=== PATIENT | female | born 1955 | race Caucasian/White ===

== ENCOUNTER 2018-01-15 11:45 | Emergency (ER) | payer OTHER ==
[2018-01-15 12:14] VITALS: BP 111/65; TEMP 97.6; O2SAT 96
--- NOTE | 2018-01-15 12:34 | RAD ---
EXAM DESCRIPTION: Knee,Right 2 or More Views CLINICAL HISTORY: 62 years, Female, pain COMPARISON: None TECHNIQUE: Three views of the right knee FINDINGS: No fracture or dislocation. Bones appear normally mineralized with normal trabecular pattern. Normal appearance of medial and lateral compartments on frontal view. Lateral view shows normal position of the patella. No patellar spurring or enthesopathy. Question small suprapatellar knee joint effusion. Normal contour of quadriceps and patellar tendons. Mild lateral tilt without subluxation of the patella on patellar sunrise view. There is narrowing of the patellofemoral joint with mild posterolateral spurring. IMPRESSION: Degenerative changes as described. Electronically signed by: Salvatore Cuellar MD 01/15/2018 12:32 PM CDT
--- NOTE | 2018-01-15 12:45 | ED.PDOC ---
History of Present Illness - General Chief Complaint: Lower Extremity Injury Stated Complaint: right knee pain Time Seen by Provider: 01/15/18 12:30 Source: patient Exam Limitations: no limitations - History of Present Illness Initial Comments: Caroline Booth 62 y/o female stated that she started having dull ache on her right knee which started 3 days ago and gradually got worse today unable to bear weight on right knee.Denies history of any form of injury to right knee. Occurred: other - see hpi -3 days ago Pain - Lower Extremity: moderate: Right Knee Method of Injury: unknown, other - no injury Improving Factors: rest Worsening Factors: movement Allergies/Adverse Reactions: Allergies Codeine Allergy (Verified 01/15/18 12:12) Latex Allergy (Verified 01/15/18 12:12) Propoxyphene [From Darvon] Allergy (Verified 01/15/18 12:12) Home Medications: Ambulatory Orders Albuterol Inhaler [Ventolin Hfa Inhaler] 2 puff INH Q4H PRN 01/15/18 Atorvastatin Calcium [Lipitor] 40 mg PO BEDTIME 01/15/18 Escitalopram Oxalate [Lexapro] 20 mg PO BEDTIME 01/15/18 Esomeprazole Magnesium [Nexium] 20 mg PO BEDTIME 01/15/18 Estradiol 1 mg PO BEDTIME 01/15/18 Fexofenadine HCl [Tamia Allergy] 180 mg PO DAILY 01/15/18 Fluticasone Prop 0.05% Nasal [Flonase Nasal [place]] 1 spray BNAS PRN 01/15/18 Gabapentin 600 mg PO BEDTIME 01/15/18 Ipratropium [place] Hfa [Atrovent Hfa] 2 inh IN QID PRN 01/15/18 Losartan Potassium & Hydrochlo [Losartan Potassium/Hydroc 50-12.5 mg] 1 tab PO DAILY 01/15/18 Montelukast [Singulair] 10 mg PO BEDTIME 01/15/18 Naproxen Sodium 500 mg PO BEDTIME 01/15/18 Omeprazole 40 mg PO DAILY 01/15/18 Potassium Chloride [K-Tab] 20 meq PO BEDTIME 01/15/18 Pyridostigmine [place] 60 mg PO BID 01/15/18 Solifenacin Succinate [Vesicare] 5 mg PO BEDTIME 01/15/18 Tramadol HCl 50 mg PO PRN PRN 01/15/18 Tramadol HCl 100 mg PO Q6HRS PRN #30 tab 01/15/18 Review of Systems - Review of Systems Constitutional: States: no symptoms reported EENTM: States: no symptoms reported Respiratory: States: no symptoms reported Cardiology: States: no symptoms reported Skin: States: see HPI All other Systems: Reviewed and Negative, No Change from Baseline Past Medical History (General) - Patient Medical History Hx Stroke: No Hx Cardiac Disorders: Yes - HX Atrial fib Hx Congestive Heart Failure: No Hx Hypertension: Yes Hx Diabetes: No Hx Gastroesophageal Reflux: Yes Hx Other PMH: Yes - myasthenia gravis;MTHFR Surgical History: tonsillectomy, other - low back;ankle,hysterectomy,rotator cuff right - Vaccination History Hx Influenza Vaccination: Yes Hx Pneumococcal Vaccination: Yes - Social History Hx Tobacco Use: Yes Hx Physical Abuse: No Hx Emotional Abuse: No Family Medical History - Family History Mother Family History: Unknown Living Status: Unknown Hx Family Hypertension: Yes - mom Hx Family Cancer: Yes - throat-dad;brain-brother;breast-mom Physical Exam - Physical Exam General Appearance: Alert, Comfortable, No apparent distress Eyes, Ears, Nose, Throat: normal ENT inspection Neck: non-tender, full range of motion, supple Cardiovascular/Respiratory: regular rate, rhythm, no M/R/G, normal peripheral pulses, normal breath sounds Gastrointestinal/Abdominal: non-tender, no organomegaly Back: no CVA tenderness, no vertebral tenderness Thigh/Hip: normal inspection, non-tender, no evidence of injury Leg: normal inspection, non-tender, no evidence of injury Knee: normal inspection, non-tender, no evidence of injury, limited ROM - pain right knee, soft tissue tenderness - right knee, other - right tibial line tenderness Ankle: normal inspection, non-tender Foot: normal inspection, non-tender Neuro/Tendon: normal sensation, normal motor functions, normal tendon functions , no evidence tendon injury Mental Status: alert, oriented x 3 Skin: normal color, warm/dry Progress - Progress Progress: 01/15/18 14:01 Vital Signs - 24 hr 01/15/18 12:06 Temperature 97.6 F Pulse Rate [ 96 H Left Brachial] Respiratory 20 Rate Blood Pressure 111/65 [Left Arm] O2 Sat by Pulse 96 Oximetry - Results/Orders Results/Orders: Laboratory Results - last 24 hr 0401/15/18 01/15/18 12:53 13:05 13:05 WBC 12.3 H RBC 4.48 Hgb 9.2 L Hct 30.2 L MCV 67.3 L MCH 20.5 L MCHC 30.5 L RDW 20.4 H Plt Count 386 MPV 9.4 Absolute Neuts (auto) 9.40 H Absolute Lymphs (auto) 1.60 Absolute Monos (auto) 1.00 H Absolute Eos (auto) 0.20 Absolute Basos (auto) 0.10 Neutrophils % 76.2 Lymphocytes % 12.9 L Monocytes % 8.2 Eosinophils % 1.7 Basophils % 1.0 Uric Acid 3.5 Urine Opiates Screen Negative Urine Barbiturates Negative Ur Phencyclidine Scrn Negative U Amphetamin/Meth Scrn Negative U Benzodiazepines Scrn Negative U Cocaine Metab Screen Negative U Cannabinoids Screen Negative - EKG/XRAY/CT XRAY: knee - right -degenerative changes Departure - Departure Clinical Impression: Pain of right knee and lower leg, History of MTHFR mutation Anemia Qualifiers: Anemia type: unspecified type Qualified Code(s): D64.9 - Anemia, unspecified Time of Disposition: 14:01 Disposition: Discharge to Home or Self Care Condition: Fair Departure Forms: ED Discharge - Pt. Copy, Patient Portal Self Enrollment Instructions: DI for Leg Pain Prescriptions: Tramadol HCl 100 mg PO Q6HRS PRN #30 tab PRN Reason: Pain Home Medications: Ambulatory Orders Albuterol Inhaler [Ventolin Hfa Inhaler] 2 puff INH Q4H PRN 01/15/18 Atorvastatin Calcium [Lipitor] 40 mg PO BEDTIME 01/15/18 Escitalopram Oxalate [Lexapro] 20 mg PO BEDTIME 01/15/18 Esomeprazole Magnesium [Nexium] 20 mg PO BEDTIME 01/15/18 Estradiol 1 mg PO BEDTIME 01/15/18 Fexofenadine HCl [Tamia Allergy] 180 mg PO DAILY 01/15/18 Fluticasone Prop 0.05% Nasal [Flonase Nasal [place]] 1 spray BNAS PRN 01/15/18 Gabapentin 600 mg PO BEDTIME 01/15/18 Ipratropium [place] Hfa [Atrovent Hfa] 2 inh IN QID PRN 01/15/18 Losartan Potassium & Hydrochlo [Losartan Potassium/Hydroc 50-12.5 mg] 1 tab PO DAILY 01/15/18 Montelukast [Singulair] 10 mg PO BEDTIME 01/15/18 Naproxen Sodium 500 mg PO BEDTIME 01/15/18 Omeprazole 40 mg PO DAILY 01/15/18 Potassium Chloride [K-Tab] 20 meq PO BEDTIME 01/15/18 Pyridostigmine [place] 60 mg PO BID 01/15/18 Solifenacin Succinate [Vesicare] 5 mg PO BEDTIME 01/15/18 Tramadol HCl 50 mg PO PRN PRN 01/15/18 Tramadol HCl 100 mg PO Q6HRS PRN #30 tab 01/15/18 Additional Instructions: Follow up with primary Md in [place];Return to ER as needed
[2018-01-15] MEDS ORDERED: KETOROLAC TROMETHAMINE INJ 30 MG/ML VIAL IM ONE (12:52)
[2018-01-15] MEDS ORDERED: DEXAMETHASONE INJ 4 MG/ML VIAL IM ONE (12:52)
[2018-01-15] MEDS ORDERED: HYDROcodone 10MG/APAP 325MG 1 EA TAB PO ONE (12:52)
== END 2018-01-15 14:25 | disposition home or self-care (01) ==
LOC: ER 11:45
DX: M25.561 Pain in right knee (principal); D64.9 Anemia, unspecified; I10 Essential (primary) hypertension; I48.91 Unspecified atrial fibrillation; G70.00 Myasthenia gravis without (acute) exacerbation; Z79.899 Other long term (current) drug therapy; Z91.040 Latex allergy status
CPT/HCPCS: 36415; 73560; 80307; 84550; 85025; J1100; J1885